=== PATIENT | female | born 1955 | race African-American/Black ===

== ENCOUNTER 2016-12-31 11:08 | Emergency (ER) | payer OTHER ==
[~2016-12-31] VITALS: Ht 160 cm; Wt 62.0 kg
[2016-12-31] MEDS ORDERED: IBUPROFEN 600MG TABLET PO ONE (18:30)
[2016-12-31 20:54] VITALS: BP 132/94
== END 2016-12-31 21:02 | disposition home or self-care (01) ==
LOC: ER 11:17
DX: S19.9XXA Unspecified injury of neck, initial encounter (principal); V89.2XXA Person injured in unspecified motor-vehicle accident, traffic, initial encounter; Y93.89 Activity, other specified; Y92.89 Other specified places as the place of occurrence of the external cause; Y99.8 Other external cause status
CPT/HCPCS: 72125; 99284; Z7610